=== PATIENT | female | born 1950 | race Caucasian/White ===

== ENCOUNTER 2021-06-12 09:19 | Emergency (ER) | payer MEDICARE, SELFPAY ==
[2021-06-12 09:36] VITALS: BP 171/101; PULSE 104; RESP 16; TEMP 36.9; O2SAT 99; BMI 23.3
--- NOTE | 2021-06-12 09:44 | XRR_ITS ---
PROCEDURE INFORMATION: Exam: XR Chest Exam date and time: 06/12/2021 9:44 AM Age: 70 years old Clinical indication: Other: Mid chest pain; Prior surgery; Surgery type: Port TECHNIQUE: Imaging protocol: XR of the chest. Views: 1 view. Total images: 1 COMPARISON: No relevant prior studies available. FINDINGS: Tubes, catheters and devices: Right Port-A-Cath catheter in place with tip in the SVC. No pneumothorax. Lungs: Unremarkable. No consolidation. Pleural spaces: See Tubes, catheters and devices finding. Heart/Mediastinum: Unremarkable. No cardiomegaly. Bones/joints: Unremarkable. XR/XR chest 1V portable [id number] IMPRESSION: 1. Right Port-A-Cath catheter in place with tip in the SVC. No pneumothorax. 2. No acute cardiopulmonary process.
--- NOTE | 2021-06-12 09:44 | ECG_ITS ---
[facility] Test Date: 2021-06-12 Pat Name: Justine Elaine Department: Room: Gender: Female Veterinarian: : 1950 Requested By: Brian Guidry Order Number: [id number] Leigha MD: MARIO MCCLAIN Measurements Intervals [place] Rate: 101 P: 69 ND: 149 QRS: -66 QRSD: 89 T: 67 QT: 342 QTc: 444 Interpretive Statements SINUS TACHYCARDIA POSSIBLE LEFT ATRIAL ENLARGEMENT [-0.1mV P-WAVE IN V1/V2] LEFT AXIS DEVIATION [QRS AXIS < -30] PATTERN CONSISTENT WITH PULMONARY DISEASE No previous ECG available for comparison Electronically Signed On 06-12-2021 17:47:27 ELDER COUNSELOR by MARIO MCCLAIN [id number]
--- NOTE | 2021-06-12 09:45 | ED_ITS ---
HPI - Chest Pain General: Chief Complaint: Chest Pain Stated Complaint: N/V/D, BOLIVAR CABALLERO FELICIANO Time Seen by Provider: 06/12/21 09:36 History of Present Illness: HPI narrative: Patient comes in with concerns for chest pain. States that over the last 2 to 3 days she has had constant left- sided sharp chest pain that doesn't radiate. States she has a history of coronary artery disease with her last heart attack being 7 months ago. States that they have told her that she has 2 blockages that can't be stented due to their location. She also endorses body aches, cough, congestion, vomiting, diarrhea for the past few days. Associated symptoms: Reports nausea and vomiting; Deny abdominal pain, dyspnea, fever(s) or palpitations Review of Systems Const: Denies: fever(s) or body aches Eyes: Denies: change in vision or blurry vision ENMT: Denies: throat pain or odynophagia Card: Reports: chest pain; Denies: palpitations Resp: Reports: productive cough; Denies: dyspnea GI: Reports: nausea, vomiting and diarrhea; Denies: abdominal pain : Denies: flank pain or dysuria Musc: Denies: neck pain or back pain Skin/Breast: Denies: rash or pruritus Neuro: Denies: headache(s) or numbness in extremities Psych: Denies: anxiety or change in appetite Endo: Denies: polyuria or excessive sweating Physical Exam Const: COMMON NORMALS: no acute distress, patient oriented x3, healthy appearing and alert HENMT: COMMON NORMALS: normocephalic and atraumatic HEAD & SCALP: normocephalic and atraumatic Eye: COMMON NORMALS: Equal, round and reactive pupils present and EOMs intact bilaterally PUPIL: Yes Equal, round and reactive pupils present Neck/C-Spine: COMMON NORMALS: full ROM and supple Resp: COMMON NORMALS: normal respiratory effort, No retractions and No use of accessory muscles Cardio: COMMON NORMALS: regular rhythm RATE: tachycardic RHYTHM: regular rhythm GI: COMMON NORMALS: Normal to inspection, nondistended, normoactive bowel sounds present, Soft to palpation and non-tender PALPATION: Yes Soft to palpation Back/Pelvis: COMMON NORMALS: thoracic and lumbar spine normal to inspection and no thoracic nor lumbar tenderness Extremity: COMMON NORMALS: normal to inspection and full ROM Neuro: COMMON NORMALS: patient oriented x3 SENSORIUM/ORIENTATION: Yes alert Psych: COMMON NORMALS: mental status grossly normal and cooperative Skin: COMMON NORMALS: no rashes or lesions noted and no wounds GENERAL SKIN EXAM: no rashes or lesions noted Course Vital Signs: Vital signs: Vital Signs Temperature 98.4 F 06/12/21 09:36 Pulse Rate 89 06/12/21 12:03 Respiratory Rate 19 H 06/12/21 12:03 Blood Pressure 96/66 06/12/21 12:03 Pulse Oximetry 98 06/12/21 12:03 MDM - Chest Pain MDM Narrative: Medical decision making narrative: Patient comes in with concerns for chest pain. States that over the last 2 to 3 days she has had constant left-sided sharp chest pain that doesn't radiate. States she has a history of coronary artery disease with her last heart attack being 7 months ago. States that they have told her that she has 2 blockages that can't be stented due to their location. She also endorses body aches, cough, congestion, vomiting, diarrhea for the past few days. On physical exam she is tachycardic. Will check labs, EKG, give aspirin, chest x-ray, and reassess. On reassessment I talked to the patient about the test results. Her troponin is negative x2. Will discharge at this time with precautions return for worsening or changing symptoms. Lab Data: Labs: Lab Results 06/12/21 06/12/21 06/12/21 09:53 09:53 09:53 WBC 4.5 10^3/uL 10^3/ uL (4.0-10.0) RBC 5.08 10^6/uL 10^6 /uL (4.1-5.3) Hgb 16.2 g/dL H g/dL (11.5-15.3) Hct 48.4 % H % (37.0-47.0) MCV 95.3 fl fl (81-99) MCH 31.9 pg pg (28.0-34.0) MCHC 33.5 g/dL g/dL (30.0-36.0) RDW 13.4 % % (12.1-15.1) Plt Count 225 10^3/cmm 10^3 /cmm (130-400) MPV 10.5 fL H fL (7.4-10.4) Neut % (Auto) 46.1 % % Lymph % (Auto) 41.5 % % [place] % (Auto) 10.9 % % Eos % (Auto) 0.4 % % Baso % (Auto) 0.9 % % Neut # (Auto) 2.06 10^3/uL 10^3 /uL (1.8-7.7) Lymph # (Auto) 1.9 10^3/uL 10^3/ uL (0.8-4.8) [place] # (Auto) 0.5 10^3/uL 10^3/ uL (0.2-0.9) Eos # (Auto) 0.0 10^3/uL 10^3/ uL (0.0-0.8) Baso # (Auto) 0.0 10^3/uL 10^3/ uL (0.0-0.1) Nucleated RBC % (a uto) 0 % % Nucleated RBCs # 0.0 /100WBC /100W BC Sodium Cancelled Potassium Cancelled Chloride Cancelled Carbon Dioxide Cancelled Anion Gap Cancelled BUN Cancelled Creatinine Cancelled GFR Calculation Cancelled Glucose Cancelled Calculated Osmolal ity Cancelled Calcium Cancelled Total Bilirubin Cancelled AST Cancelled ALT Cancelled Alkaline Phosphata se Cancelled Troponin T Baselin e Cancelled Troponin T 120 Min [place] Delta Troponin T Total Protein Cancelled Albumin Cancelled Globulin Cancelled 06/12/21 06/12/21 06/12/21 10:26 10:26 12:38 WBC RBC Hgb Hct MCV MCH MCHC RDW Plt Count MPV Neut % (Auto) Lymph % (Auto) [place] % (Auto) Eos % (Auto) Baso % (Auto) Neut # (Auto) Lymph # (Auto) [place] # (Auto) Eos # (Auto) Baso # (Auto) Nucleated RBC % (a uto) Nucleated RBCs # Sodium 134 mmol/L L mmol /L (136-145) Potassium 3.8 mmol/L mmol/L (3.5-5.1) Chloride 100 mmol/L mmol/L (98-107) Carbon Dioxide 21 mmol/L L mmol/ L (22-29) Anion Gap 16.8 (5-19) BUN 29 mg/dL H mg/dL (8-23) Creatinine 0.9 mg/dL mg/dL (0.5-0.9) GFR Calculation 62.3 mL/min L mL/ min (90-130) Glucose 234 mg/dL H mg/dL (65-115) Calculated Osmolal ity 291 mOsm/kg mOsm/ kg (285-295) Calcium 7.7 mg/dL L mg/dL (8.5-10.5) Total Bilirubin 0.6 mg/dL mg/dL (0.15-1.2) AST 22 U/L U/L (0-32) ALT 19 U/L U/L (0-33) Alkaline Phosphata se 68 IU/L IU/L (35-105) Troponin T Baselin e 9 ng/L ng/L (0-10) Troponin T 120 Min [place] 8.21 ng/L ng/L (0-10) Delta Troponin T -0.79 ABS# L ABS# (0-10) Total Protein 5.8 g/dL L g/dL (6.6-8.7) Albumin 3.7 g/dL g/dL (3.5-5.2) Globulin 2.1 g/dL g/dL (1.3-4.6) Discharge Plan Discharge Patient Disposition: Home Clinical Impression: Chest pain Qualifiers: Chest pain type: unspecified Qualified Code(s): R07.9 - Chest pain, unspecified Condition: Stable Prescriptions: No Action atorvastatin 40 mg Tablet 40 mg PO DAILY RF: 0 carvedilol 6.25 mg Tablet 6.25 mg PO BID RF: 0 Plavix 75 mg Tablet 75 mg PO DAILY RF: 0 Celexa 20 mg Tablet 20 mg PO DAILY RF: 0 lisinopril 10 mg Tablet 10 mg PO DAILY RF: 0 aspirin 81 mg Tablet,Chewable 81 mg PO DAILY RF: 0 Humalog U-100 Insulin 100 unit/mL Solution See Rx Instructions .ROUTE .COMPLEX RF: 0 Lyrica 50 mg Capsule 50 mg PO BID RF: 0 Levemir U-100 Insulin 100 unit/mL Solution 40 unit SUBCUT BEDTIME RF: 0 Discharge Orders: Discharge ED (Routine); Ordered 06/12/21 Ordered By: Brian Guidry Coding Level of Care Code ED [place] [employer] Cutter for g Fwd Exam Comprehensive
[2021-06-12] MEDS: aspirin 81 mg Chew Tablet 324 MG PO (09:55)
[2021-06-12 09:56] LABS: Basophils % 0.9 %; Eosinophils % 0.4 %; Hematocrit 48.4 % (37.0-47.0); Hemoglobin 16.2 g/dL (11.5-15.3); Lymphocytes # 1.9 10^3/uL (0.8-4.8); Lymphocytes % 41.5 %; Mean Corpuscular HGB Conc 33.5 g/dL (30.0-36.0); Mean Corpuscular Hemoglobin 31.9 pg (28.0-34.0); Mean Corpuscular Volume 95.3 fl (81-99); Mean Platelet Volume 10.5 fL (7.4-10.4); Monocytes # 0.5 10^3/uL (0.2-0.9); Monocytes % 10.9 %; Neutrophils # 2.06 10^3/uL (1.8-7.7); Neutrophils % 46.1 %; Nucleated Red Blood Cells % 0 %; Platelet Count 225 10^3/cmm (130-400); Red Blood Count 5.08 10^6/uL (4.1-5.3); Red Cell Distribution Width 13.4 % (12.1-15.1); White Blood Count 4.5 10^3/uL (4.0-10.0)
[2021-06-12] MEDS: sodium chloride 0.9% 500 ML 999 ML IV (09:56)
[2021-06-12] MEDS: ondansetron 2 mg/ML SDV 2 mL 4 MG IVP (09:56)
[2021-06-12 10:00] VITALS: BP 90/68; PULSE 94; RESP 16; O2SAT 96
--- NOTE | 2021-06-12 10:02 | PC.NURSE ---
patient placed on continuous bedside cardiac, BP and O2 monitor.
[2021-06-12 10:44] VITALS: BP 105/69; PULSE 88; RESP 20; O2SAT 97
[2021-06-12 11:14] VITALS: BP 93/71; PULSE 87; RESP 14; O2SAT 97
[2021-06-12 11:31] LABS: Alanine Aminotransferase 19 U/L (0-33); Albumin Level 3.7 g/dL (3.5-5.2); Alkaline Phosphatase 68 IU/L (35-105); Aspartate Amino Transferase 22 U/L (0-32); Blood Urea Nitrogen 29 mg/dL (8-23); Calcium 7.7 mg/dL (8.5-10.5); Carbon Dioxide 21 mmol/L (22-29); Chloride 100 mmol/L (98-107); Globulin 2.1 g/dL (1.3-4.6); Glomerular Filtration Rate 62.3 mL/min (90-130); Glucose 234 mg/dL (65-115); Osmolality Calculated 291 mOsm/kg (285-295); Sodium 134 mmol/L (136-145); Total Bilirubin 0.6 mg/dL (0.15-1.2); Total Protein 5.8 g/dL (6.6-8.7)
[2021-06-12 11:35] LABS: Anion Gap 16.8 (5-19); Potassium 3.8 mmol/L (3.5-5.1)
[2021-06-12 11:36] LABS: Troponin(5th) Baseline 9 ng/L (0-10)
[2021-06-12] MEDS: ketorolac 30 mg/mL INJ IVP (12:01)
[2021-06-12] MEDS: sodium chloride 0.9% 1,000 ML 999 ML IV (12:02)
[2021-06-12 12:03] VITALS: BP 96/66; PULSE 89; RESP 19; O2SAT 98
[2021-06-12 13:17] LABS: Troponin 5 2HR 8.21 ng/L (0-10)
[2021-06-12 13:30] LABS: Troponin 5 2HR Delta -0.79 ABS# (0-10)
[2021-06-12 13:52] VITALS: BP 110/70; PULSE 74; RESP 22; O2SAT 97
[2021-06-12 15:58] LABS: Adenovirus Not Detected (NOT DETECT); Chlamydia Pneumoniae Not Detected (NOT DETECT); Coronavirus 229E,HKU1,NL63,OC4 Not Detected (NOT DETECT); Human Metapneumovirus Not Detected (NOT DETECT); Human Rhinovirus/Enterovirus Not Detected (NOT DETECT); Influenza A Not Detected (NOT DETECT); Influenza A H1 Not Detected (NOT DETECT); Influenza A H1-2009 Not Detected (NOT DETECT); Influenza A H3 Not Detected (NOT DETECT); Influenza B Not Detected (NOT DETECT); Mycoplasma Pneumoniae Not Detected (NOT DETECT); Parainfluenza Virus Type 1 Not Detected (NOT DETECT); Parainfluenza Virus Type 2 Not Detected (NOT DETECT); Parainfluenza Virus Type 3 Not Detected (NOT DETECT); Parainfluenza Virus Type 4 Not Detected (NOT DETECT); Respiratory Syncytial Virus A Not Detected (NOT DETECT); Respiratory Syncytial Virus B Not Detected (NOT DETECT); SARS-COV-2 Detected (NOT DETECT)
--- NOTE | 2021-06-12 16:32 | PC.NURSE ---
pt notified of postive covid result
== END 2021-06-12 14:09 | disposition home or self-care (01) ==
PROVIDERS: Emergency Provider Emergency Medicine
DX: R07.9 Chest pain, unspecified (principal); U07.1 COVID-19; Z79.02 Long term (current) use of antithrombotics/antiplatelets; Z79.82 Long term (current) use of aspirin; Z79.4 Long term (current) use of insulin
CPT/HCPCS: 36415; 71045; 80053; 84484; 85025; 87635; 93005; 96361; 96374; 96375; 99284; J1885; J2405; J7030; J7040